=== PATIENT | female | born 1940 ===

== ENCOUNTER 2023-03-21 11:06 | Inpatient (IN) | payer OTHER ==
[~2023-03-21] VITALS: Ht 160 cm; Wt 80.7 kg
[2023-03-21] MEDS ORDERED: CLONAZEP PO (12:09)
[2023-03-21] MEDS ORDERED: COZAA PO (12:09)
[2023-03-21] MEDS ORDERED: GABAPE (12:10)
[2023-03-21] MEDS ORDERED: [UNRECOGNIZED DRUG - OTHER] PO (12:10)
[2023-03-21] MEDS ORDERED: LYRIC PO (12:11)
[2023-03-26] MEDS ORDERED: CALCITRIOL0.25 MCG (13:09)
[2023-03-26] MEDS ORDERED: DULOXETINE HCL60 MG (13:09)
[2023-03-26] MEDS ORDERED: GABAPENTIN300 M2 (13:10)
[2023-03-26] MEDS ORDERED: FUROSEMIDE20 MG (13:10)
[2023-03-26] MEDS ORDERED: CITALOPRAM HBR20 MG (13:10)
[2023-03-26] MEDS ORDERED: LEVOTHYROXINE25 MC1 (13:10)
[2023-03-26] MEDS ORDERED: ELIQUIS2.5 MG (13:10)
[2023-03-26] MEDS ORDERED: GLIPIZIDE ER5 MG (13:10)
[2023-03-26] MEDS ORDERED: OMEPRAZOLE20 MG (13:10)
[2023-03-26] MEDS ORDERED: DIVALPROEX SOD500 M1 (13:10)
[2023-03-26] MEDS ORDERED: CLOTRIMAZOLE-BE15 G1 (13:10)
[2023-03-26] MEDS ORDERED: CLONAZEPAM1 MG (13:10)
[2023-03-26] MEDS ORDERED: DONEPEZIL HCL10 MG (13:10)
[2023-03-26] MEDS ORDERED: PREGABALIN100 MG (13:10)
[2023-03-26] MEDS ORDERED: METOPROLOL SUCC50 MG (13:10)
[2023-03-26] MEDS ORDERED: HYDROCHLOROTH12.5 MG (13:11)
[2023-03-26] MEDS ORDERED: ROSUVASTATIN CA10 MG (13:11)
[2023-03-26] MEDS ORDERED: LOSARTAN POTAS100 MG (13:11)
[2023-03-30] MEDS ORDERED: TRAMADOL HCL50 MG PO (13:06)
[2023-03-30] MEDS ORDERED: ELIQUIS2.5 MG PO (13:07)
== END 2023-03-30 16:50 | disposition home or self-care (01) | DRG 470 ==
LOC: SURH 03-26 08:00 → O/R 03-26 08:00 → SURG 03-26 11:45 → SURH 03-26 18:34
PROVIDERS: ADMIT Orthopaedic Surgery; ATTEND Orthopaedic Surgery
PROC: 0SRD0J9 Replacement of Left Knee Joint with Synthetic Substitute, Cemented, Open Approach (ICD-10-PCS; principal; 2023-03-26 13:45)
PROC: 30233N1 Transfusion of Nonautologous Red Blood Cells into Peripheral Vein, Percutaneous Approach (ICD-10-PCS; 2023-03-28)
DX: M17.12 Unilateral primary osteoarthritis, left knee (principal); D62 Acute posthemorrhagic anemia; M22.12 Recurrent subluxation of patella, left knee; I10 Essential (primary) hypertension; E66.9 Obesity, unspecified; E11.8 Type 2 diabetes mellitus with unspecified complications; Z79.4 Long term (current) use of insulin